=== PATIENT | female | born 2000 | race American Indian/Alaskan Native ===

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

== ENCOUNTER 2020-04-18 03:47 | Emergency (ER) | payer OTHER ==
[~2020-04-18] VITALS: Ht 167.6 cm; Wt 70.8 kg
[~2020-04-18 03:47] MED LIST: FLAGYL500 MG PO
== END 2020-04-18 04:34 | disposition home or self-care (01) ==
LOC: ED 03:47
DX: S06.0X0A Concussion without loss of consciousness, initial encounter (principal); F17.200 Nicotine dependence, unspecified, uncomplicated; W18.30XA Fall on same level, unspecified, initial encounter
CPT/HCPCS: 99283